=== PATIENT | female | born 1950 | race Caucasian/White ===

== ENCOUNTER → 2017-02-12 | Outpatient (CLI) | payer BC ==
--- NOTE | 2017-02-12 13:11 | MAMMOGRAPHY REPORT ---
BILATERAL DIGITAL DIAGNOSTIC MAMMOGRAM TOMOSYNTHESIS WITH CAD: 02/12/2017 CLINICAL HISTORY: History of benign stereotactic biopsy of left breast calcifications July 2016, here for short interval follow-up of other bilateral calcifications. TECHNIQUE: Breast tomosynthesis in addition to standard 2D mammography was performed. Current study was also evaluated with a Computer Aided Detection (CAD) system. Bilateral CC and MLO 2-D and jose synthesis images and spot magnification bilateral cc and ML views were obtained. COMPARISON: Comparison is made to exams dated: 08/17/2016 mammogram, 02/12/2016 mammogram, 02/04/2016 mammogram, 01/31/2015 mammogram, 01/29/2014 mammogram, and 10/06/2012 mammogram - [facility]. BREAST COMPOSITION: The tissue of both breasts is heterogeneously dense, which may obscure small ma sses. FINDINGS: Again noted are multiple bilateral clusters of faint punctate calcifications in bilateral upper outer quadrant, as well as other scattered bilateral calcifications noted. The calcification s are stable on spot magnification views dating back to January 2016, and are likely stable compared to exams prior to 2015 including the 2012 exam. Given the long-term stability as well as benign morpho logy and distribution of the calcifications, they are considered benign. A biopsy marker clip is no felipe within the left upper outer quadrant from prior benign stereotactic biopsy. There are no suspic ious masses, calcifications, or areas of architectural distortion noted in either breast. IMPRESSION: ACR BI-RADS CATEGORY 2: BENIGN Bilateral calcifications are stable compared to prior exams and are considered benign. There is no mammographic evidence of malignancy. A 1 year screening mammogram is recommended. The patient has b een verbally notified of the results. Approximately 10% of breast cancers are not detected with mammography. A negative mammographic repor t should not delay biopsy if a clinically suggestive mass is present. Ashley Rodriguez M.D. ah/:02/12/2017 12:07:08 Mesh Man: Karena TORRE)(M), [facility] letter sent: Normal 1/2 BI-RADS Code: ACR BI-RADS Category 2: Benign
== END | disposition home or self-care (01) ==
LOC: C.MAMM 08:52
PROVIDERS: ATTEND Family Medicine
DX: R92.1 Mammographic calcification found on diagnostic imaging of breast (principal)